=== PATIENT | female | born 1975 | race Caucasian/White ===

== ENCOUNTER 2020-07-10 20:29 | Emergency (ER) | payer SELFPAY ==
[~2020-07-10] VITALS: Ht 170.2 cm; Wt 90.5 kg
--- NOTE | 2020-07-10 21:44 | NUR ---
Pt walked back from lobby to room at this time. Steady upon ambulation. No acute distress noted.
[2020-07-10 21:51] VITALS: BP 142/93
[2020-07-10] MEDS ORDERED: ONDANSETRON ODT 4 MG ONE (21:54)
[2020-07-10] MEDS ORDERED: ONDANSETRON ODT 4 MG PO ONE (22:00)
--- NOTE | 2020-07-10 22:00 | NUR ---
Pt c/o slight nausea from not having medications. Denies vomiting or diarrhea and is able to tolerate water. Pt requested a nausea pill. JESSEE Medina at bedside for eval. Pt AO x 4. Skin pink, warm and dry. Resp even and unlabored. No acute distress noted. Call light within reach. Will cont to monitor pt.
== END 2020-07-10 22:20 | disposition home or self-care (01) ==
LOC: ED 20:59
DX: R11.0 Nausea (principal); Z76.0 Encounter for issue of repeat prescription; F17.210 Nicotine dependence, cigarettes, uncomplicated
CPT/HCPCS: 99283; 99406; Q0162

== ENCOUNTER 2020-10-06 18:41 | Emergency (ER) | payer SELFPAY ==
[~2020-10-06] VITALS: Ht 170.2 cm; Wt 88.3 kg
[2020-10-06 18:52] VITALS: BP 119/86
[2020-10-06] MEDS ORDERED: BACITRACIN ZINC OINT 500U/GM, 0.9 GM ONE (19:56)
--- NOTE | 2020-10-06 19:59 | NUR ---
Wound cleaned and dressed with bacitracin, covered with bandaid.
== END 2020-10-06 20:02 | disposition home or self-care (01) ==
LOC: ED 19:55
DX: S61.216A Laceration without foreign body of right little finger without damage to nail, initial encounter (principal); L03.011 Cellulitis of right finger; W26.0XXA Contact with knife, initial encounter; Y93.89 Activity, other specified; Y92.009 Unspecified place in unspecified non-institutional (private) residence as the place of occurrence of the external cause; Y99.8 Other external cause status
CPT/HCPCS: 99283

== ENCOUNTER 2020-11-26 22:00 | Emergency (ER) | payer MEDICAID ==
[~2020-11-26] VITALS: Ht 170.2 cm; Wt 94.3 kg
[2020-11-27 00:36] LABS: BASOPHILS % (AUTO) 1 % (0-1); EOSINOPHILS % (AUTO) 2 % (1-7); LYMPHOCYTES % (AUTO) 27 % (22-44); MEAN CORPUSCULAR HEMOGLOBIN 28.8 pg (27.0-34.8); MEAN CORPUSCULAR HGB CONC 33.4 g/dL (32.4-35.8); MEAN PLATELET VOLUME 6.5 fL (7.4-10.4); MONOCYTES % (AUTO) 5 % (2-9); NEUTROPHILS % (AUTO) 66 % (42-75); PLATELET COUNT 423 x10^3/uL (130-400); RED CELL DISTRIBUTION WIDTH 14.5 % (9.6-15.2)
[2020-11-27 00:45] LABS: ALBUMIN 3.3 g/dL (3.4-5.0); ANION GAP 6 mmol/L (5-15); CALCIUM 8.6 mg/dL (8.5-10.1); CHLORIDE 107 mmol/L (98-107); CREATININE 0.57 mg/dL (0.55-1.02)
[2020-11-27 00:49] LABS: TROPONIN I < 0.015 ng/mL (0.000-0.045)
[2020-11-27] MEDS ORDERED: ACETAMINOPHEN 325 MG TABLET ONE (00:57)
[2020-11-27] MEDS ORDERED: ACETAMINOPHEN 325 MG TABLET PO ONE (01:00)
[2020-11-27 01:22] VITALS: BP 145/76
== END 2020-11-27 01:23 | disposition home or self-care (01) ==
LOC: ED 23:42
DX: J45.31 Mild persistent asthma with (acute) exacerbation (principal); R06.00 Dyspnea, unspecified; F17.200 Nicotine dependence, unspecified, uncomplicated
CPT/HCPCS: 36415; 71045; 80048; 82040; 84484; 85025; 93005; 99285